=== PATIENT | male | born 1975 | race Caucasian/White ===

== ENCOUNTER 2016-05-17 14:34 | Emergency (ER) | payer OTHER ==
--- NOTE | 2016-05-17 15:19 | EDM.PDOC ---
ED HPI Skin/Rash - General Chief Complaint: Skin Complaint Stated Complaint: CYST ON FINGER Time Seen by Provider: 05/17/16 15:16 Source: Reports: Patient History Limitations: Reports: No limitations - History of Present Illness INITIAL COMMENTS - FREE TEXT/NARRATIVE: History of present illness: [40-year-old male presenting with concerns of a wound to left thumb status post injury using tools. There was a puncture in on the thumb and third and general contaminants were forced into the wound causing a blister like sensation. Patient presents after he had are ready expressed purulent drainage from the wound he he came seeking antibiotics.] Review of systems: As per history of present illness and below otherwise all systems reviewed and negative. Past medical history: As per history of present illness and as reviewed below otherwise noncontributory. Surgical history: As per history of present illness and as reviewed below otherwise noncontributory. Social history: No reported history of drug or alcohol abuse. Family history: As per history of present illness and as reviewed below otherwise noncontributory. Physical exam: HEENT: Atraumatic, normocephalic, pupils reactive, negative for conjunctival pallor or scleral icterus, mucous membranes moist, throat clear, neck supple, nontender, trachea midline. Lungs: Clear to auscultation, breath sounds equal bilaterally, chest nontender. Heart: S1S2, regular, negative for clicks, rubs, or JVD. Abdomen: Soft, nondistended, nontender. Negative for masses or hepatosplenomegaly. Negative for costovertebral tenderness. Pelvis: Stable nontender. Genitourinary: Deferred. Rectal: Deferred. Extremities: Atraumatic, negative for cords or calf pain. Neurovascular unremarkable. Neuro: Awake, alert, oriented. Cranial nerves II through XII unremarkable. Cerebellum unremarkable. Motor and sensory unremarkable throughout. Exam nonfocal. Blister like wound to right thumb with bloody discharge expressed with minimal effort no purulent drainage at this time Diagnostics: [] Therapeutics: [] Impression: [Abscess] Plan: [ Bactrim DS ] Definitive disposition and diagnosis as appropriate pending reevaluation and review of above. - Related Data Allergies Allergy/AdvReac Type Severity Reaction Status Date / Time No Known Allergies Allergy Verified 05/17/16 15:03 Home Meds: Ambulatory Orders Medication Instructions Recorded Confirmed Amoxicillin/Potassium Clav 1 each PO BID #20 tablet 05/17/16 [Augmentin 875-125 Tablet] Aspirin [[place] Aspirin] 1 tab PO DAILY 05/17/16 05/17/16 Sulfamethoxazole/Trimethoprim 1 each PO BID #20 tablet 05/17/16 [Bactrim Ds Tablet] Past Medical History Cardiovascular History: Reports: [place], Stents - Infectious Disease History Infectious Disease History: Reports: Chicken pox - Past Surgical History Musculoskeletal Surgical History: Reports: Shoulder surgery Social & Family History - Family History Family Medical History: Noncontributory - Tobacco Use Smoking Status *Q: Current Every Day Smoker Years of Tobacco use: 20 Packs/Tins Daily: 2 - Caffeine Use Caffeine Use: Reports: Coffee, Energy drinks, Soda - Recreational Drug Use Recreational Drug Use: No ED ROS GENERAL - Review of Systems Review Of Systems: See Below (See history of present illness) ED EXAM, SKIN/RASH Exam: See Below (The history of present illness) Course - Vital Signs Last Recorded V/S: Last Vital Signs Temp 36.3 C 05/17/16 15:00 Pulse 79 05/17/16 15:00 Resp 16 05/17/16 15:00 BP 129/76 05/17/16 15:00 Pulse Ox 94 L 05/17/16 15:00 Departure - Departure Time of Disposition: 15:18 Disposition: Home, Self-Care 01 Condition: good Clinical Impression: Abscess Prescriptions: Amoxicillin/Potassium Clav [Augmentin 875-125 Tablet] 1 each PO BID #20 tablet Sulfamethoxazole/Trimethoprim [Bactrim Ds Tablet] 1 each PO BID #20 tablet Forms: ED Department Discharge Additional Instructions: The following information is given to patients seen in the emergency department who are being discharged to home. This information is to outline your options for follow-up care. We provide all patients seen in our emergency department with a follow-up referral. The need for follow-up, as well as the timing and circumstances, are variable depending upon the specifics of your emergency department visit. If you don't have a primary care physician on staff, we will provide you with a referral. We always advise you to contact your personal physician following an emergency department visit to inform them of the circumstance of the visit and for follow-up with them and/or the need for any referrals to a consulting specialist. The emergency department will also refer you to a specialist when appropriate. This referral assures that you have the opportunity for follow-up care with a specialist. All of these measure are taken in an effort to provide you with optimal care, which includes your follow-up. Under all circumstances we always encourage you to contact your private physician who remains a resource for coordinating your care. When calling for follow-up care, please make the office aware that this follow-up is from your recent emergency room visit. If for any reason you are refused follow-up, please contact the [facility] Emergency Department at and asked to speak to the emergency department charge nurse. You're prescribed both Augmentin as well as Bactrim DS occupational health and safety adviser the Bactrim DS if you do not see a definite resolution within 5-7 days you may then fill the Augmentin Take ibuprofen 800 mg every 8 hours as needed for pain or discomfort Up with primary care 1-2 days Return to ED as needed as discussed
== END 2016-05-17 15:37 | disposition home or self-care (01) ==
LOC: MW.ED 14:34
CPT/HCPCS: 99283

== ENCOUNTER 2016-09-13 15:57 | Emergency (ER) | payer OTHER ==
[2016-09-13] MEDS ORDERED: Nitroglycerin 0.4 MG Tab.SL SL ONE ×2 (16:08→16:18)
[2016-09-13] MEDS ORDERED: Sodium Chloride 0.9% 2.5 ML Syringe FLUSH PRN (16:08)
[2016-09-13] MEDS ORDERED: Sodium Chloride 0.9% 10 ML Syringe FLUSH PRN (16:08)
[2016-09-13] MEDS ORDERED: Morphine 2 MG/ML Syringe IVPUSH ONE (16:18)
[2016-09-13] MEDS ORDERED: Ondansetron 4 MG/2 ML SDV IVPUSH ONE (16:23)
[2016-09-13 16:43] LABS: CHLORIDE,CL 109 mmol/L (98-110); SODIUM,NA 140 mmol/L (136-146)
--- NOTE | 2016-09-13 16:55 | EDM.PDOC ---
ED HPI GENERAL MEDICAL PROBLEM - General Chief Complaint: Chest Pain Stated Complaint: CHEST PAIN Time Seen by Provider: 09/13/16 16:05 Source of Information: Reports: Patient History Limitations: Reports: No Limitations - History of Present Illness INITIAL COMMENTS - FREE TEXT/NARRATIVE: HISTORY AND PHYSICAL: History of present illness: [Patient comes to the emergency room for evaluation of chest pain. Onset was 6: 30 this morning when he felt a tightness across his chest that he rates as 7 out of 10. He had nausea and diaphoresis, no vomiting. He currently rates his chest pain as 3 out of 10 and describes it as a squeezing sensation below his pectoral muscles. He's not had any shortness of breath or difficulty breathing. No headache, sore throat. No radiation of pain into his neck, left shoulder, down his arm. No abdominal pain vomiting or change in his bowel or bladder. No swelling in his feet or lower legs. He took 4 tablets of aspirin which improved his pain somewhat. 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 History significant for 1 stent in 2012. Plavix for one year. He continues to smoke 2-3 packs of cigarettes per day.] Review of systems: As per history of present illness and below otherwise all systems reviewed and negative. Past medical history: As per history of present illness and as reviewed below otherwise noncontributory. Surgical history: As per history of present illness and as reviewed below otherwise noncontributory. Social history: No reported history of drug or alcohol abuse. Family history: As per history of present illness and as reviewed below otherwise noncontributory. Physical exam: HEENT: Atraumatic, normocephalic. Oral mucous members are pink and moist. Lungs: Clear to auscultation, breath sounds equal bilaterally. Heart: S1S2, regular rate and rhythm. Abdomen: Obese, Soft, nondistended, nontender. Negative for masses, guarding, rebound. Pelvis: Stable nontender. Genitourinary: Deferred. Rectal: Deferred. Extremities: Atraumatic. No deformity noted to extremities. Neurovascular unremarkable. Neuro: Awake, alert, oriented. Motor and sensory unremarkable throughout. Exam nonfocal. Diagnostics: [CBC, CMP, troponin, EKG, d-dimer, PT/INR, chest x-ray] Therapeutics: [Zofran 4 mg IV, nitroglycerin 0.4 mg 2, morphine 2 mg IV] Impression: [Chest pain] Plan: [Pain is completely resolved with 2 nitroglycerin and 2 mg of morphine IV. Discussed the need for observation with the patient. He is in agreement with plan to transfer to [facility] where he has a third miller from his previous stent. Dr. Ambrosio at [facility] agrees to accept patient. Patient to be transported by ground EMS.] Definitive disposition and diagnosis as appropriate pending reevaluation and review of above. chest Pain Score (Numeric/FACES): 3 - Related Data Allergies Allergy/AdvReac Type Severity Reaction Status Date / Time No Known Allergies Allergy Verified 09/13/16 16:08 Home Meds: Home Meds Amoxicillin/Potassium Clav [Augmentin 875-125 Tablet] 1 each PO BID #20 tablet 05/17/16 [Rx] Aspirin [[place] Aspirin] 1 tab PO DAILY 05/17/16 [History] Sulfamethoxazole/Trimethoprim [Bactrim Ds Tablet] 1 each PO BID #20 tablet 05/17 [Rx] Past Medical History Cardiovascular History: Reports: [place], Stents - Infectious Disease History Infectious Disease History: Reports: Chicken Pox - Past Surgical History Musculoskeletal Surgical History: Reports: Shoulder Surgery Social & Family History - Family History Family Medical History: Noncontributory - Tobacco Use Smoking Status *Q: Current Every Day Smoker Years of Tobacco use: 22 Packs/Tins Daily: 3 - Caffeine Use Caffeine Use: Reports: Coffee, Energy Drinks, Soda - Recreational Drug Use Recreational Drug Use: No ED ROS GENERAL - Review of Systems Review Of Systems: ROS reveals no pertinent complaints other than HPI. ED EXAM, GENERAL - Physical Exam Exam: See Below Course - Vital Signs Last Recorded V/S: Last Vital Signs Temp 97.2 F 09/13/16 16:00 Pulse 94 09/13/16 16:00 Resp 18 09/13/16 16:00 BP 117/69 09/13/16 16:15 Pulse Ox 94 L 09/13/16 16:00 - Orders/Labs/Meds Orders: Active Orders 24 hr Category Date Time Status Cardiac Monitoring [RC] . DIRECTED Care 09/13/16 16:08 Active EKG Documentation Completion [RC] STAT Care 09/13/16 16:08 Active Oxygen Therapy [RC] ASDIRECTED Care 09/13/16 16:08 Active Chest 1V Frontal [CR] Stat Exams 09/13/16 16:08 Taken Sodium Chloride 0.9% [Saline Flush] Med 09/13/16 16:08 Active 10 ml FLUSH ASDIRECTED PRN Sodium Chloride 0.9% [Saline Flush] Med 09/13/16 16:08 Active 2.5 ml FLUSH ASDIRECTED PRN Saline Lock Insert [OM.PC] Stat Oth 09/13/16 16:08 Ordered Medication Orders Sodium Chloride (Saline Flush) 10 ml FLUSH ASDIRECTED PRN PRN Reason: Keep Vein Open Last Admin: 09/13/16 16:40 Dose: 10 ml Sodium Chloride (Saline Flush) 2.5 ml FLUSH ASDIRECTED PRN PRN Reason: Keep Vein Open Last Admin: 09/13/16 16:40 Dose: 2.5 ml Labs: Laboratory Tests 09/13/16 09/13/16 09/13/16 Range/Units 16:00 16:00 16:00 WBC 11.26 H (4.0-11.0) K/uL RBC 4.81 (4.50-5.90) M/uL Hgb 15.1 (13.0-17.0) g/dL Hct 44.8 (38.0-50.0) % MCV 93.1 (80.0-98.0) fL MCH 31.4 (27.0-32.0) pg MCHC 33.7 (31.0-37.0) g/dL RDW Std Deviation 45.2 (28.0-62.0) fl RDW Coeff of Andrew 13 (11.0-15.0) % Plt Count 260 (150-400) K/uL MPV 9.90 (7.40-12.00) fL Neut % (Auto) 64.2 (48.0-80.0) % Lymph % (Auto) 25.9 (16.0-40.0) % [place] % (Auto) 5.4 (0.0-15.0) % Eos % (Auto) 4.0 (0.0-7.0) % Baso % (Auto) 0.5 (0.0-1.5) % Neut # (Auto) 7.2 H (1.4-5.7) K/uL Lymph # (Auto) 2.9 H (0.6-2.4) K/uL [place] # (Auto) 0.6 (0.0-0.8) K/uL Eos # (Auto) 0.5 (0.0-0.7) K/uL Baso # (Auto) 0.1 (0.0-0.1) K/uL Nucleated RBC % 0.0 /100WBC Nucleated RBCs # 0 K/uL INR 0.99 (0.86-1.11) D-Dimer, Quantitative 0.22 (0.0-0.52) mg/LFEU Sodium 140 (136-146) mmol/L Potassium 4.1 (3.5-5.1) mmol/L Chloride 109 (98-110) mmol/L Carbon Dioxide 20 L (21-31) mmol/L BUN 17 (6.0-23.0) mg/dL Creatinine 1.1 (0.6-1.5) mg/dL Est Cr Clr Drug Dosing 107.76 mL/min Estimated GFR (MDRD) > 60.0 ml/min Glucose 87 (60-110) mg/dL Calcium 9.2 (8.8-10.8) mg/dL Total Bilirubin 0.3 (0.1-1.5) mg/dL AST 19 (5-40) IU/L ALT 26 (8-54) IU/L Alkaline Phosphatase 80 (40-150) Troponin I (0.0-0.29) NG/ML Total Protein 6.9 (6.0-8.0) g/dL Albumin 3.8 (3.5-5.0) g/dL Globulin 3.1 (2.0-3.5) g/dL Albumin/Globulin Ratio 1.2 L (1.3-2.8) Amylase 44 (10-90) U/L Lipase 16 (7-80) U/L 09/13/16 Range/Units 16:00 WBC (4.0-11.0) K/uL RBC (4.50-5.90) M/uL Hgb (13.0-17.0) g/dL Hct (38.0-50.0) % MCV (80.0-98.0) fL MCH (27.0-32.0) pg MCHC (31.0-37.0) g/dL RDW Std Deviation (28.0-62.0) fl RDW Coeff of Andrew (11.0-15.0) % Plt Count (150-400) K/uL MPV (7.40-12.00) fL Neut % (Auto) (48.0-80.0) % Lymph % (Auto) (16.0-40.0) % [place] % (Auto) (0.0-15.0) % Eos % (Auto) (0.0-7.0) % Baso % (Auto) (0.0-1.5) % Neut # (Auto) (1.4-5.7) K/uL Lymph # (Auto) (0.6-2.4) K/uL [place] # (Auto) (0.0-0.8) K/uL Eos # (Auto) (0.0-0.7) K/uL Baso # (Auto) (0.0-0.1) K/uL Nucleated RBC % /100WBC Nucleated RBCs # K/uL INR (0.86-1.11) D-Dimer, Quantitative (0.0-0.52) mg/LFEU Sodium (136-146) mmol/L Potassium (3.5-5.1) mmol/L Chloride (98-110) mmol/L Carbon Dioxide (21-31) mmol/L BUN (6.0-23.0) mg/dL Creatinine (0.6-1.5) mg/dL Est Cr Clr Drug Dosing mL/min Estimated GFR (MDRD) ml/min Glucose (60-110) mg/dL Calcium (8.8-10.8) mg/dL Total Bilirubin (0.1-1.5) mg/dL AST (5-40) IU/L ALT (8-54) IU/L Alkaline Phosphatase (40-150) Troponin I < 0.10 (0.0-0.29) NG/ML Total Protein (6.0-8.0) g/dL Albumin (3.5-5.0) g/dL Globulin (2.0-3.5) g/dL Albumin/Globulin Ratio (1.3-2.8) Amylase (10-90) U/L Lipase (7-80) U/L Meds: Medications Generic Name Dose Route Start Last Admin Trade Name Jaseq PRN Reason Stop Dose Admin Sodium Chloride 10 ml 09/13/16 16:08 09/13/16 16:40 Saline Flush FLUSH 10 ml ASDIRECTED PRN Administration Keep Vein Open Sodium Chloride 2.5 ml 09/13/16 16:08 09/13/16 16:40 Saline Flush FLUSH 2.5 ml ASDIRECTED PRN Administration Keep Vein Open Discontinued Medications Generic Name Dose Route Start Last Admin Trade Name Danny PRN Reason Stop Dose Admin Morphine Sulfate 2 mg 09/13/16 16:18 09/13/16 16:39 Morphine IVPUSH 09/13/16 16:19 2 mg ONETIME ONE Administration Nitroglycerin 0.4 mg 09/13/16 16:08 09/13/16 16:11 Nitrostat SL 09/13/16 16:09 0.4 mg ONETIME ONE Administration Nitroglycerin 0.4 mg 09/13/16 16:18 09/13/16 16:15 Nitrostat SL 09/13/16 16:19 0.4 mg ONETIME ONE Administration Ondansetron HCl 4 mg 09/13/16 16:23 09/13/16 16:39 Zofran IVPUSH 09/13/16 16:24 4 mg ONETIME ONE Administration Departure - Departure Time of Disposition: 18:30 Disposition: DC/Tfer to Acute Hospital 02 Reason for Transfer *Q: Other Condition: Good Clinical Impression: Acute coronary syndrome Forms: ED Department Discharge - My Orders Last 24 Hours: My Active Orders 09/13/16 16:08 Cardiac Monitoring [RC] . DIRECTED EKG Documentation Completion [RC] STAT Oxygen Therapy [RC] ASDIRECTED Chest 1V Frontal [CR] Stat Sodium Chloride 0.9% [Saline Flush] 10 ml FLUSH ASDIRECTED PRN Sodium Chloride 0.9% [Saline Flush] 2.5 ml FLUSH ASDIRECTED PRN Saline Lock Insert [OM.PC] Stat - Assessment/Plan Last 24 Hours: My Active Orders 09/13/16 16:08 Cardiac Monitoring [RC] . DIRECTED EKG Documentation Completion [RC] STAT Oxygen Therapy [RC] ASDIRECTED Chest 1V Frontal [CR] Stat Sodium Chloride 0.9% [Saline Flush] 10 ml FLUSH ASDIRECTED PRN Sodium Chloride 0.9% [Saline Flush] 2.5 ml FLUSH ASDIRECTED PRN Saline Lock Insert [OM.PC] Stat
[2016-09-13 18:44] VITALS: BP 124/79
--- NOTE | 2016-09-14 10:41 | CR ---
EXAM DATE: 09/13/16 PATIENT'S AGE: 40 Patient: ROSALIO NATION Facility: [place], [place] Site . Site : [id number] Study: XRay Chest [id number]/26/2017 4:39:48 PM Ordering Physician: Doctor Caceres Final Report: HISTORY: Chest pain. FINDINGS: AP portable chest radiograph is compared with 03 July 2014. EKG leads overlie the thorax. Cardiac silhouette is normal. Pulmonary vasculature is free of cephalization. No lobar consolidation or pleural effusion is seen. IMPRESSION: No acute cardiopulmonary disease. Dictated by Christiane Perez MD @ 09/13/2016 5:03:42 PM Dictated by: Christiane Perez MD @ 09/13/2016 17:03:49 (Electronic Signature) Report Signed by Proxy. [facility]
== END 2016-09-13 18:43 ==
LOC: MW.ED 15:57
DX: I24.9 Acute ischemic heart disease, unspecified (principal); F17.210 Nicotine dependence, cigarettes, uncomplicated; Z79.82 Long term (current) use of aspirin; Z79.899 Other long term (current) drug therapy
CPT/HCPCS: 36415; 71010; 80053; 82150; 83690; 84484; 85025; 85379; 85610; 93005; 96374; 96375; 99285; A9270; J2270; J2405

== ENCOUNTER 2019-04-10 16:20 | Emergency (ER) | payer SELFPAY ==
[2019-04-10 17:23] VITALS: BP 142/73; PULSE 81
--- NOTE | 2019-04-10 17:42 | EDM.PDOC ---
ED HPI GENERAL MEDICAL PROBLEM - General Chief Complaint: Eye Problems Stated Complaint: COLD Time Seen by Provider: 04/10/19 17:32 Source of Information: Reports: Patient History Limitations: Reports: No Limitations - History of Present Illness INITIAL COMMENTS - FREE TEXT/NARRATIVE: HISTORY AND PHYSICAL: History of present illness: Patient is a 43-year-old male who presents to the emergency room with complaints of bilateral eye irritation/drainage and dry cough x 3-5 days. Patient denies any fever, chills, headache, change in vision, syncope or near syncope. Denies any chest pain, back pain, shortness of breath. Denies any abdominal pain, nausea, vomiting, diarrhea, constipation or dysuria. Patient has been eating and drinking appropriately. Review of systems: As per history of present illness and below otherwise all systems reviewed and negative. Past medical history: As per history of present illness and as reviewed below otherwise noncontributory. Surgical history: As per history of present illness and as reviewed below otherwise noncontributory. Social history: See social history for further information Family history: As per history of present illness and as reviewed below otherwise noncontributory. Physical exam: General: Well developed and well nourished 43-year-old male. Alert and oriented. Nontoxic-appearing and in no acute distress. HEENT: Atraumatic, normocephalic, pupils equal and reactive bilaterally, negative for conjunctival pallor or scleral icterus, bilateral scleral injection with crusty drainage noted along bilateral lash line, mucous membranes moist, TMs normal bilaterally, throat clear, neck supple, nontender, trachea midline. No drooling or trismus noted. No meningeal signs. No hot potato voice noted. Lungs: Clear to auscultation, breath sounds equal bilaterally, chest nontender. Heart: S1S2, regular rate and rhythm without overt murmur Abdomen: Soft, nondistended, nontender. Skin: Intact, warm, dry. No lesions or rashes noted. Extremities: Atraumatic, moves all extremities per self without difficulty or deficits, negative for cords or calf pain. Neurovascular unremarkable. Neuro: Awake, alert, oriented. Cranial nerves II through XII unremarkable. Cerebellum unremarkable. Motor and sensory unremarkable throughout. Exam nonfocal. Notes: Negative influenza screening. Supportive care measures were reviewed and discussed. Voices understanding and is agreeable to plan of care. Denies any further questions or concerns at this time. Diagnostics: Flu swab Therapeutics: None Prescription: Zpak, Polytrim Impression: Conjunctivitis Bronchitis Plan: 1. Standard contact precautions (covering mouth while coughing, avoid sharing drinking cups and eating utensils). Please make sure you're doing good handwashing as this is contagious. 2. Take the medications as directed 3. Supportive care measures such as Tylenol and/or ibuprofen for pain and fever management.Encourage small frequent sips of fluids to prevent dehydration. 4. Follow-up with your primary care provider as we discussed. Return to the ED as needed and as discussed. Definitive disposition and diagnosis as appropriate pending reevaluation and review of above. - Related Data Allergies Allergy/AdvReac Type Severity Reaction Status Date / Time No Known Allergies Allergy Verified 04/10/19 17:20 Home Meds: Home Meds Aspirin [[place] Aspirin EC] 1 tab PO DAILY 05/17/16 [History] Amoxicillin/Clavulanate K [Augmentin 875-125 MG] 1 tab PO BID 10 Days #20 tablet 04/10/19 [Rx] Polymyxin B Sulf/Trimethoprim [Polytrim Eye Drops] 1 drop EYEBOTH 5XDAY 5 Days # 1 bottle 04/10/19 [Rx] Past Medical History Cardiovascular History: Reports: [place], Stents - Infectious Disease History Infectious Disease History: Reports: None - Past Surgical History Musculoskeletal Surgical History: Reports: Shoulder Surgery Social & Family History - Family History Family Medical History: Noncontributory - Tobacco Use Smoking Status *Q: Current Every Day Smoker Years of Tobacco use: 30 Packs/Tins Daily: 3 - Caffeine Use Caffeine Use: Reports: Coffee - Recreational Drug Use Recreational Drug Use: No ED ROS GENERAL - Review of Systems Review Of Systems: Comprehensive ROS is negative, except as noted in HPI. ED EXAM GENERAL W FULL EYE - Physical Exam Exam: See Below (See dictation) Course - Vital Signs Last Recorded V/S: Last Vital Signs Temp 97.7 F 04/10/19 17:21 Pulse 81 04/10/19 17:21 Resp 16 04/10/19 17:21 BP 142/73 H 04/10/19 17:21 Pulse Ox 95 04/10/19 17:21 Departure - Departure Time of Disposition: 17:42 Disposition: Home, Self-Care 01 Clinical Impression: Bronchitis Conjunctivitis Qualifiers: Conjunctivitis type: acute Acute conjunctivitis type: bacterial Laterality: bilateral Qualified Code(s): H10.33 - Unspecified acute conjunctivitis, bilateral - Discharge Information Prescriptions: Amoxicillin/Clavulanate K [Augmentin 875-125 MG] 1 tab PO BID 10 Days #20 tablet Polymyxin B Sulf/Trimethoprim [Polytrim Eye Drops] 1 drop EYEBOTH 5XDAY 5 Days # 1 bottle Instructions: Bacterial Conjunctivitis, [id number], Acute Bronchitis, Adult, [id number] Referrals: Larry Caballero MD [Primary Care Provider] - Forms: ED Department Discharge Additional Instructions: The following information is given to patients seen in the emergency department who are being discharged to home. This information is to outline your options for follow-up care. We provide all patients seen in our emergency department with a follow-up referral. The need for follow-up, as well as the timing and circumstances, are variable depending upon the specifics of your emergency department visit. If you don't have a primary care physician on staff, we will provide you with a referral. We always advise you to contact your personal physician following an emergency department visit to inform them of the circumstance of the visit and for follow-up with them and/or the need for any referrals to a consulting specialist. The emergency department will also refer you to a specialist when appropriate. This referral assures that you have the opportunity for follow-up care with a specialist. All of these measure are taken in an effort to provide you with optimal care, which includes your follow-up. Under all circumstances we always encourage you to contact your private physician who remains a resource for coordinating your care. When calling for follow-up care, please make the office aware that this follow-up is from your recent emergency room visit. If for any reason you are refused follow-up, please contact the [facility] Emergency Department at and asked to speak to the emergency department charge nurse. [facility] Primary Care [address] [place] [id number] [id number] 1. Standard contact precautions (covering mouth while coughing, avoid sharing drinking cups and eating utensils). Please make sure you're doing good handwashing as this is contagious. 2. Take the medications as directed 3. Supportive care measures such as Tylenol and/or ibuprofen for pain and fever management.Encourage small frequent sips of fluids to prevent dehydration. 4. Follow-up with your primary care provider as we discussed. Return to the ED as needed and as discussed. Sepsis Event Note - Evaluation Sepsis Screening Result: No Definite Risk - Focused Exam Date Exam was Performed: 04/12/19 Time Exam was Performed: 10:12
== END 2019-04-10 18:25 | disposition home or self-care (01) ==
LOC: MW.ED 16:20
DX: J40 Bronchitis, not specified as acute or chronic (principal); H10.33 Unspecified acute conjunctivitis, bilateral
CPT/HCPCS: 87804; 99283

== ENCOUNTER 2021-06-04 01:04 | Emergency (ER) | payer OTHER ==
[2021-06-04 02:25] VITALS: BP 133/71; PULSE 79
== END 2021-06-04 02:33 | disposition home or self-care (01) ==
LOC: MW.ED 01:04
DX: S62.396A Other fracture of fifth metacarpal bone, right hand, initial encounter for closed fracture (principal); I25.2 Old myocardial infarction; Z95.5 Presence of coronary angioplasty implant and graft; Z79.82 Long term (current) use of aspirin; W22.09XA Striking against other stationary object, initial encounter
CPT/HCPCS: 29125; 73130-26-RT; 73130-RT; 99282; 99283-25

== ENCOUNTER 2021-07-07 00:24 | Emergency (ER) | payer OTHER ==
[2021-07-07 02:58] VITALS: BP 129/79
[2021-07-07] MEDS ORDERED: Enoxaparin 150 MG/1 ML Syringe SUBCUT ONE (03:08)
[2021-07-07 03:39] VITALS: PULSE 86
== END 2021-07-07 03:20 ==
LOC: MW.ED 00:24
DX: I21.4 Non-ST elevation (NSTEMI) myocardial infarction (principal); I25.10 Atherosclerotic heart disease of native coronary artery without angina pectoris; I10 Essential (primary) hypertension; I25.2 Old myocardial infarction; Z95.5 Presence of coronary angioplasty implant and graft; Z20.822 Contact with and (suspected) exposure to COVID-19
CPT/HCPCS: 36415; 71045; 80053; 83735; 84484; 85025; 85610; 85730; 87635; 93005; 96372; 99285; J1650; U0002